=== PATIENT | female | born 1950 | race Caucasian/White ===

== ENCOUNTER → 2018-08-04 | Outpatient (CLI) | payer MEDICARE ==
--- NOTE | 2018-08-04 15:18 | KCIC ---
MR of the musculoskeletal pelvis HISTORY: Left hip pain for 30 years. Fell in May. TECHNIQUE: Routine multiplanar sequences are obtained with a large [id number] through the musculoskeletal pelvis. FINDINGS: Small subcortical lesion at the right anterior femoral head, compatible with a small cyst, measures 6 mm. No aggressive bone destruction, significant bone lesion or acute fracture. No evidence of femoral head osteonecrosis. No significant joint effusion. Mild degenerative changes at both hips. Hamstring tendinosis without acute rupture. Gluteal tendons are intact. Rectus femoris tendons are intact. Very limited visualization of lower spine demonstrates degenerative spondylosis IMPRESSION: 1. Mild degenerative changes at both hips. 2. Partially seen lumbar spondylosis. 3. No acute findings. Electronically signed by: Barrett Tena MD (08/04/2018 3:15 PM) [facility]
== END | disposition home or self-care (01) ==
LOC: KCIC MRI 11:08
PROVIDERS: ATTEND Nurse Practitioner Family
DX: M16.0 Bilateral primary osteoarthritis of hip (principal); M47.896 Other spondylosis, lumbar region
CPT/HCPCS: 72195

== ENCOUNTER 2019-03-15 17:31 | Emergency (ER) | payer MEDICARE ==
[~2019-03-15] VITALS: Ht 168.9 cm; Wt 78.0 kg
[2019-03-15 17:44] VITALS: BP 126/72
--- NOTE | 2019-03-15 19:39 | PHYS DOC ---
Past Medical History Past Medical History: Cancer, Hypertension, Other Additional Past Medical Histor: chronic sinus infection, breast cancer Past Surgical History: Other Additional Past Surgical Histo: right breast biopsy Alcohol Use: None Drug Use: None Adult General Chief Complaint Chief Complaint: SHOULDER INJURY HPI HPI Patient is a 68 year old female with history of hypertension who presents to the ED today complaining of possible right shoulder dislocation, patient states she was at an exam table having an ultrasound done when she somehow fell off the table landing on her shoulder. She states she was seen at Dr. Barajas's office they did x-rays and he was concerned about shoulder dislocation and sent her to the ED to be seen by an orthopedic doctor. She has no pain to the should er. Review of Systems Review of Systems Constitutional: Denies fever or chills [] Musculoskeletal: Reports possible right shoulder dislocation Integument: Denies rash or skin lesions [] Neurologic: Denies headache, focal weakness or sensory changes [] All other systems were reviewed and found to be within normal limits, except as documented in this note. Allergies Allergies Allergies Coded Allergies Type Severity Reaction Last Updated Verified No Known Drug Allergies 03/15/19 No Physical Exam Physical Exam Constitutional: Well developed, well nourished, no acute distress, non-toxic appearance. [] Skin: Warm, dry, no erythema, no rash. [] Back: No tenderness, no CVA tenderness. [] Extremities: Right shoulder with no obvious deformity. Limited range of motion to the right shoulder. Full range of motion to the right fingers. Adequate radial, medial, ulnar sensation to the right hand. +2 right radial pulse. Cap refill less than 2 seconds the right fingers. Neurologic: Alert and oriented X 3, normal motor function, normal sensory function, no focal deficits noted. [] Psychologic: Affect normal, judgement normal, mood normal. [] Current Patient Data Vital Signs Vital Signs Date Time Temp Pulse Resp B/P (MAP) Pulse Ox O2 Delivery O2 Flow Rate FiO2 03/15/19 17:44 99.2 78 18 126/72 (90) 97 Room Air 99.2 EKG EKG [] Radiology/Procedures Radiology/Procedures []PROCEDURE: SHOULDER 2+V RIGHT Indication:Fall. TECHNIQUE: 3 views of the right shoulder COMPARISON:None FINDINGS/ impression: No acute fracture or dislocation. Moderate acromioclavicular joint osteoarthritis. Right lung is clear. Electronically signed by: Prakash Ragsdale DO (03/15/2019 7:45 PM) [facility] DICTATED and SIGNED BY: PRAKASH RAGSDALE DO DATE: 03/15/191944 Course & Med Decision Making Course & Med Decision Making Pertinent Labs and Imaging studies reviewed. (See chart for details) This is a 68-year-old female patient presenting to the ED today concerned she could have dislocated her right shoulder after falling off on exam table doing ultrasound outpatient. Right shoulder x-rays interpreted by radiologist are negative for any acute findings, noted for DJD. Ice elevation encouraged. OTC pain relievers. Follow-up with orthopedic doctor in 1-2 weeks. Dragon Disclaimer Dragon Disclaimer This electronic medical record was generated, in whole or in part, using a voice recognition dictation system. Departure Departure Impression: Primary Impression: Fall from height of less than 3 feet Additional Impressions: DJD of right shoulder Contusion of right shoulder Disposition: 01 HOME, SELF-CARE Condition: STABLE Referrals: EVIE CANDELARIO MD (PCP) follow up in 1 week LEANDRO HAYDEN MD follow up in 1 week Patient Instructions: Contusion, [id number] Additional Instructions: You were seen for right shoulder contusion. Your right shoulder x-rays were negative for any acute findings. Try to ice and elevate the extremity. You can take [id number] pain relievers as needed for pain. Follow-up with your own doctor or the provided orthopedic doctor in 1-2 weeks as needed. Problem Qualifiers Additional Impressions: DJD of right shoulder Osteoarthritis type: unspecified Qualified Codes: M19.011 - Primary osteoarthritis, right shoulder Contusion of right shoulder Encounter type: initial encounter Qualified Codes: S40.011A - Contusion of right shoulder, initial encounter LILO BHATTI [employer] Mar 15, 2019 19:39
--- NOTE | 2019-03-15 19:48 | RAD ---
Indication:Fall. TECHNIQUE: 3 views of the right shoulder COMPARISON:None FINDINGS/ impression: No acute fracture or dislocation. Moderate acromioclavicular joint osteoarthritis. Right lung is clear. Electronically signed by: Prakash Ragsdale DO (03/15/2019 7:45 PM) [facility]
== END 2019-03-15 20:24 | disposition home or self-care (01) ==
LOC: ER 17:31
DX: S40.011A Contusion of right shoulder, initial encounter (principal); I10 Essential (primary) hypertension; W17.89XA Other fall from one level to another, initial encounter; Y93.89 Activity, other specified; Y92.89 Other specified places as the place of occurrence of the external cause; Y99.8 Other external cause status
CPT/HCPCS: 73030; 99284

== ENCOUNTER → 2019-05-28 | Outpatient (CLI) | payer MEDICARE ==
[~2019-05-28] MED LIST: FUROSEMIDE 40 MG/4 ML VIAL. IVP ONE
--- NOTE | 2019-05-28 19:30 | RAD ---
RENAL SCINTIGRAPHY WITH FUROSEMIDE Clinical Indication: Hydronephrosis. Comparison: CT abdomen and pelvis with contrast, February 19, 2019, [facility]. Technique: The patient received 10 mCi of technetium 99m MAG3 intravenously. Posterior dynamic imaging of the kidneys was performed. There is a one minute angiographic phase followed by one minute frames for a total of 40 minutes. The patient was injected with 40 mg of furosemide intravenously. Time of administration is not recorded. Findings: There is normal blood flow to the kidneys. Initial cortical uptake of the kidneys is relatively symmetric. No significant cortical retention of the kidneys is identified. The end of the study. There is mild dilation of the left renal pelvis. The right renal pelvis is markedly patulous. The ROIs evaluate the renal cortices. The time to maximum of the kidneys is normal. The left is 2 minutes, right is 3 minutes. The renal split function is normal 53% left and 47% right. On the left the time from max to T 1/2 max is 8.2 minutes. The clearance curve of the right kidney probably reflects inclusion of dilated calyces as no significant clearance has occurred at 17 minutes. From this point to the end of the study there is gradual clearance from the right kidney indicating a blunted response to Lasix. IMPRESSION: 1. The uptake and clearance of the left kidney is normal. 2. The renal split function is normal, 53% left and 47% right. 3. There is a markedly patulous right renal pelvis. Despite this there is relatively normal cortical uptake and excretion of the right kidney. Right kidney demonstrates a blunted response to Lasix. 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 Electronically signed by: Scott Meier MD (05/28/2019 5:37 PM) [id number]
== END | disposition home or self-care (01) ==
LOC: NM 11:01
PROVIDERS: ATTEND Urology
DX: N13.30 Unspecified hydronephrosis (principal); I10 Essential (primary) hypertension
CPT/HCPCS: 78708; 96374; A9562; J1940